=== PATIENT | male | born 1970 | race Caucasian/White ===

== ENCOUNTER 2017-04-24 01:45 | Emergency (ER) | payer BC ==
[2017-04-24 02:12] VITALS: BP 123/78
--- NOTE | 2017-04-24 02:36 | EDM.PDOC ---
ED HPI GENERAL MEDICAL PROBLEM - General Chief Complaint: Gastrointestinal Problem Stated Complaint: ABD PAIN Time Seen by Provider: 04/24/17 02:15 Source of Information: Reports: Patient History Limitations: Reports: No Limitations - History of Present Illness INITIAL COMMENTS - FREE TEXT/NARRATIVE: Donnie comes to [facility] with some epigastric pain over the past 24 hours. Pain is sharp and burning at times, nonradiating, and without nausea, vomiting, diarrhea or constipation. He did have a painful hemorrhoid last weekend. He has been on Augmentin 500 mg tabs for about a week since being diagnosed with sinusitis. Sinus sxs were reportedly facial pain around the R eye. Sxs have not improved with antibx and Prednisone. - Related Data Allergies Allergy/AdvReac Type Severity Reaction Status Date / Time No Known Allergies Allergy Verified 04/24/17 02:20 Home Meds: Home Meds Albuterol Sulfate [Ventolin Hfa] 1 puff INH BEDTIME PRN 04/24/17 [History] Amoxicillin/Clavulanate K [Augmentin 875-125 MG] 1 tab PO BID 04/24/17 [History] Social & Family History - Tobacco Use Smoking Status *Q: Current Every Day Smoker Years of Tobacco use: 20 Second Hand Smoke Exposure: Yes - Alcohol Use Days Per Week of Alcohol Use: 2 Number of Drinks Per Day: 3 Total Drinks Per Week: 6 - Recreational Drug Use Recreational Drug Use: No ED ROS GENERAL - Review of Systems Review Of Systems: See Below Constitutional: Reports: Malaise HEENT: Reports: Other (R temporal pain) Respiratory: Reports: No Symptoms Cardiovascular: Reports: No Symptoms Endocrine: Reports: No Symptoms GI/Abdominal: Reports: Abdominal Pain : Reports: No Symptoms Musculoskeletal: Reports: No Symptoms Skin: Reports: No Symptoms Neurological: Reports: Headache Psychiatric: Reports: No Symptoms Hematologic/Lymphatic: Reports: No Symptoms Immunologic: Reports: No Symptoms ED EXAM, GENERAL - Physical Exam Exam: See Below Exam Limited By: No Limitations General Appearance: Alert, WD/WN, Mild Distress Eye Exam: Bilateral Eye: Normal Inspection, PERRL Ears: Normal External Exam, Normal TMs, Other (R TMJ is tender to palpation) Nose: Normal Inspection, Normal Mucosa Throat/Mouth: Normal Inspection, Normal Lips, Normal Oropharynx, Normal Voice Head: Normocephalic Neck: Normal Inspection, Supple, Non-Tender, Full Range of Motion Respiratory/Chest: Lungs Clear, Normal Breath Sounds Cardiovascular: Regular Rate, Rhythm, No Murmur GI/Abdominal: Normal Bowel Sounds, Soft, No Organomegaly, No Distention, No Mass , Tender (epigastrium) Back Exam: Normal Inspection Extremities: Normal Inspection Neurological: Alert, Oriented, CN II-XII Intact, Normal Cognition, Normal Gait, No Motor/Sensory Deficits Psychiatric: Normal Affect, Normal Mood Skin Exam: Warm, Dry Lymphatic: No Adenopathy Course - Vital Signs Text/Narrative:: Donnie remained stable at the [facility]. No meds were dispensed. Last Recorded V/S: Last Vital Signs Temp 36.4 C 04/24/17 01:45 Pulse 92 04/24/17 01:45 Resp 17 04/24/17 01:45 BP 123/78 04/24/17 01:45 Pulse Ox 100 04/24/17 01:45 Departure - Departure Time of Disposition: 02:37 Disposition: Home, Self-Care 01 Condition: Fair Clinical Impression: Arthralgia of right temporomandibular joint, Abdominal pain - Discharge Information Referrals: PCP,None [Primary Care Provider] - - Problem List & Annotations (1) Arthralgia of right temporomandibular joint SNOMED Code(s): 01327886 Code(s): M26.621 - ARTHRALGIA OF RIGHT TEMPOROMANDIBULAR JOINT Status: Acute Current Visit: Yes Annotation/Comment:: 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 I suggested NSAIDs, soft foods, and DDS appt for evaluation. He will stop antibx. (2) Abdominal pain SNOMED Code(s): 67387174 Code(s): R10.9 - UNSPECIFIED ABDOMINAL PAIN Status: Acute Current Visit: Yes Annotation/Comment:: Abdominal pain likely related to antibx use, and this should be stopped. He may treat sxs. - Problem List Review Problem List Initiated/Reviewed/Updated: Yes - Assessment/Plan Plan: Follow up with DDS.
== END 2017-04-24 02:38 | disposition home or self-care (01) ==
LOC: FB.ED 01:45
DX: M26.621 Arthralgia of right temporomandibular joint (principal); R10.13 Epigastric pain; F17.210 Nicotine dependence, cigarettes, uncomplicated
CPT/HCPCS: 99283